=== PATIENT | male | born 1980 | race Caucasian/White ===

== ENCOUNTER 2021-10-06 09:31 | Emergency (ER) | payer OTHER ==
[~2021-10-06 09:31] MED LIST: ALBU90OI6 INH; CEPH500 PO; Cleocin HCl150 MG PO; ERYT1OIN RIGHTEYE; HYDACE5 PO; IBUP800 PO; LIDO2L MM; PROM25 PO; SULTRIDS PO
== END 2021-10-06 10:16 | disposition left against medical advice (07) ==
LOC: ER 09:31
DX: K13.79 Other lesions of oral mucosa (principal); Z53.21 Procedure and treatment not carried out due to patient leaving prior to being seen by health care provider

== ENCOUNTER 2023-03-30 23:47 | Emergency (ER) | payer OTHER ==
[~2023-03-30] VITALS: Ht 182.9 cm; Wt 81.2 kg
[2023-03-31 00:05] VITALS: BP 139/86
== END 2023-03-31 00:51 | disposition home or self-care (01) ==
LOC: ER 23:47
DX: L55.9 Sunburn, unspecified (principal); Z59.00 Homelessness unspecified; J45.909 Unspecified asthma, uncomplicated; F17.210 Nicotine dependence, cigarettes, uncomplicated
CPT/HCPCS: 99282

== ENCOUNTER 2023-08-25 00:06 | Emergency (ER) | payer OTHER ==
[~2023-08-25] VITALS: Ht 172.7 cm; Wt 63.5 kg
[2023-08-25 00:53] LABS: BASOPHILS ABSOLUTE AUTO 0.12 K/mm3 (0.00-0.23); BASOPHILS PERCENT AUTO 1 % (0-2); EOSINOPHILS ABSOLUTE AUTO 0.27 K/mm3 (0.00-0.68); EOSINOPHILS PERCENT AUTO 3 % (0-6); Hematocrit 38.5 % (37.0-53.0); IMMATURE GRAN ABSOLUTE AUTO 0.03 K/mm3 (0.00-0.10); IMMATURE GRAN PERCENT AUTO 0 % (0-1); LYMPHOCYTES ABSOLUTE AUTO 3.95 K/mm3 (0.84-5.20); LYMPHOCYTES PERCENT AUTO 39 % (21-46); MONOCYTES ABSOLUTE AUTO 1.01 K/mm3 (0.16-1.47); MONOCYTES PERCENT AUTO 10 % (4-13); Mean Corpuscular HGB 29.5 pg (26.0-34.0); Mean Corpuscular HGB Conc 33.8 g/dL (31.5-36.5); Mean Corpuscular Volume 88 fL (80-100); Mean Platelet Volume 9.1 fL (9.1-12.4); NEUTROPHILS ABSOLUTE AUTO 4.64 K/mm3 (1.96-9.15); NEUTROPHILS PERCENT AUTO 46 % (41-73); Platelet Count 319 K/mm3 (150-400); RDW Coefficient Variation 14.1 % (11.7-14.2); RDW Standard Deviation 45.2 fL (35.1-46.3); White Blood Cell Count 10.02 K/mm3 (4.00-11.30)
[2023-08-25 01:05] LABS: Albumin, Blood 3.6 g/dL (3.4-5.0); Bilirubin, Total 0.3 mg/dL (0.1-1.0); Bun/Creatinine Ratio 14.4 (12.0-20.0); Calcium, Blood 8.6 mg/dL (8.5-10.1); Creatinine, Blood 1.39 mg/dL (0.60-1.20); Globulin, Blood 3.5 g/dL (2.2-4.0); Potassium, Blood 4.2 mmol/L (3.5-5.5); Total Protein, Blood 7.1 g/dL (6.4-8.2)
[2023-08-25 03:05] VITALS: BP 118/71
[2023-08-25] MEDS ORDERED: NARCAN4 M1 (03:12)
== END 2023-08-25 03:20 | disposition home or self-care (01) ==
LOC: ER 00:06
PROVIDERS: Emergency Medicine
DX: T40.411A Poisoning by fentanyl or fentanyl analogs, accidental (unintentional), initial encounter (principal); J45.909 Unspecified asthma, uncomplicated; F17.210 Nicotine dependence, cigarettes, uncomplicated
CPT/HCPCS: 80053; 85025; 93005; 93010; 96361; 96374; 99284-25; J2405; J7030

== ENCOUNTER 2024-03-27 10:55 | Emergency (ER) | payer OTHER ==
[~2024-03-27] VITALS: Ht 180.3 cm; Wt 81.2 kg
[~2024-03-27 10:55] MED LIST changes: +NARCAN4 M1
[2024-03-27 11:24] VITALS: BP 139/88
[2024-03-27] MEDS ORDERED: SULTRIDS PO (12:57)
[2024-03-27] MEDS ORDERED: Cephalexin500 MG PO (12:57)
== END 2024-03-27 13:11 | disposition home or self-care (01) ==
LOC: ER 10:55
DX: L03.313 Cellulitis of chest wall (principal); L02.213 Cutaneous abscess of chest wall; F17.210 Nicotine dependence, cigarettes, uncomplicated; J45.909 Unspecified asthma, uncomplicated; Z79.891 Long term (current) use of opiate analgesic
CPT/HCPCS: 99283

== ENCOUNTER 2024-08-24 01:59 | Emergency (ER) | payer OTHER ==
[~2024-08-24] VITALS: Ht 177.8 cm; Wt 81.7 kg
[~2024-08-24 01:59] MED LIST changes: +Cephalexin500 MG PO
[2024-08-24] MEDS ORDERED: Albuterol 2.5 MG/3 ML VIAL INH ONE (05:45)
[2024-08-24] MEDS ORDERED: ALBU90OI INH (06:58)
[2024-08-24] MEDS ORDERED: NARCAN4 M1 (06:58)
[2024-08-24 07:18] VITALS: BP 118/61
== END 2024-08-24 07:16 | disposition home or self-care (01) ==
LOC: ER 01:59
DX: T40.411A Poisoning by fentanyl or fentanyl analogs, accidental (unintentional), initial encounter (principal); S27.321A Contusion of lung, unilateral, initial encounter; X58.XXXA Exposure to other specified factors, initial encounter; F17.210 Nicotine dependence, cigarettes, uncomplicated
CPT/HCPCS: 71045; 94644; 94664; 99285-25

== ENCOUNTER 2024-09-20 11:34 | Emergency (ER) | payer OTHER ==
[~2024-09-20] VITALS: Ht 180.3 cm; Wt 81.2 kg
[~2024-09-20 11:34] MED LIST changes: +ALBU90OI INH
[2024-09-20 11:47] VITALS: BP 130/79
[2024-09-20] MEDS ORDERED: Robaxin750 MG PO (11:50)
[2024-09-20] MEDS ORDERED: Methocarbamol 500 MG Tab PO ONE (11:50)
[2024-09-20] MEDS ORDERED: IBUP800 PO (11:50)
[2024-09-20] MEDS ORDERED: Ibuprofen 400 MG Tab PO ONE (11:50)
== END 2024-09-20 12:20 | disposition left against medical advice (07) ==
LOC: ER 11:34
DX: M54.50 Low back pain, unspecified (principal); J45.909 Unspecified asthma, uncomplicated; F17.210 Nicotine dependence, cigarettes, uncomplicated
CPT/HCPCS: 99282